=== PATIENT | male | born 1990 | race Caucasian/White ===

== ENCOUNTER 2016-11-20 18:42 | Emergency (ER) | payer OTHER ==
[~2016-11-20] VITALS: Ht 167.6 cm; Wt 80.0 kg
[2016-11-20 18:44] VITALS: BP 122/69; PULSE 118; RESP 18; TEMP 98.2; O2SAT 98
[2016-11-20] MEDS ORDERED: OXYC15TA PO (19:53)
[2016-11-20] MEDS ORDERED: DULO20 PO (19:53)
[2016-11-20] MEDS ORDERED: TRAM50TA PO (19:53)
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
== END 2016-11-20 20:46 | disposition home or self-care (01) ==
LOC: NETRI 18:42
DX: M25.512 Pain in left shoulder (principal); Z76.0 Encounter for issue of repeat prescription
CPT/HCPCS: 99281